=== PATIENT | male | born 1955 | race African-American/Black ===

== ENCOUNTER 2020-05-04 20:55 | Emergency (ER) | payer OTHER ==
[~2020-05-04] VITALS: Ht 182.9 cm; Wt 115.0 kg
[2020-05-04 21:05] VITALS: BP 132/75
[2020-05-04] MEDS ORDERED: ACETAMINOPHEN 325MG TABLET PO ONE (22:30)
[2020-05-04 23:30] LABS: CLARITY URINE CLEAR (CLEAR); COLOR URINE YELLOW (YELLOW); KETONES URINE TRACE (NEGATIVE); LEUKOCYTE ESTERASE URINE TRACE (NEGATIVE); NITRITE URINE NEGATIVE (NEGATIVE); OCCULT BLOOD URINE NEGATIVE (NEGATIVE); PROTEIN URINE TRACE (NEGATIVE); SPECIFIC GRAVITY URINE 1.025 (1.005-1.030); UROBILINOGEN URINE 0.2 E.U./dL (0.2-1.0)
[2020-05-04 23:45] LABS: *AMPHETAMINES SCREEN URINE NEGATIVE (NEGATIVE)
[2020-05-04 23:46] LABS: *BARBITURATES SCREEN URINE NEGATIVE (NEGATIVE); *COCAINE SCREEN URINE NEGATIVE (NEGATIVE); METHADONE URINE SCREEN NEGATIVE (NEGATIVE); OPIATES URINE SCREEN NEGATIVE (NEGATIVE); PHENCYCLIDINE URINE SCREEN PRESUMTIVE POSITIVE (NEGATIVE)
[2020-05-04 23:47] LABS: *BENZODIAZEPINES SCREEN URINE NEGATIVE (NEGATIVE); CANNABINOID URINE SCREEN NEGATIVE (NEGATIVE)
== END 2020-05-05 00:19 | disposition left against medical advice (07) ==
LOC: ER 20:55
DX: F16.129 Hallucinogen abuse with intoxication, unspecified (principal); M54.5 Low back pain; I11.0 Hypertensive heart disease with heart failure; I50.9 Heart failure, unspecified; Z53.29 Procedure and treatment not carried out because of patient's decision for other reasons; W01.0XXD Fall on same level from slipping, tripping and stumbling without subsequent striking against object, subsequent encounter
CPT/HCPCS: 72131; 80305; 81003; 99284

== ENCOUNTER 2020-06-17 19:30 | Emergency (ER) | payer OTHER ==
[~2020-06-17] VITALS: Ht 182.9 cm; Wt 103.0 kg
[2020-06-17 19:33] VITALS: BP 186/83
== END 2020-06-17 21:50 | disposition home or self-care (01) ==
LOC: ER 19:30
DX: M54.5 Low back pain (principal); I11.0 Hypertensive heart disease with heart failure; I50.9 Heart failure, unspecified
CPT/HCPCS: 99281

== ENCOUNTER 2020-06-18 17:45 | Emergency (ER) | payer OTHER ==
[~2020-06-18] VITALS: Ht 175.3 cm; Wt 71.0 kg
[2020-06-18 18:04] VITALS: BP 150/100
[2020-06-18] MEDS ORDERED: ACETAMINOPHEN 325MG TABLET PO ONE (21:45)
== END 2020-06-18 23:21 | disposition home or self-care (01) ==
LOC: ER 17:45
DX: R07.89 Other chest pain (principal); M54.5 Low back pain
CPT/HCPCS: 93005; 99283

== ENCOUNTER 2020-06-19 18:50 | Emergency (ER) | payer OTHER ==
[~2020-06-19] VITALS: Ht 175.3 cm; Wt 90.0 kg
[2020-06-19 18:56] VITALS: BP 177/78
== END 2020-06-20 02:51 | disposition home or self-care (01) ==
LOC: ER 19:01
DX: R60.0 Localized edema (principal)
CPT/HCPCS: 93005; 99283

== ENCOUNTER 2020-06-20 18:58 | Emergency (ER) | payer OTHER ==
[~2020-06-20] VITALS: Ht 182.9 cm; Wt 80.0 kg
[2020-06-20 19:23] VITALS: BP 164/81
== END 2020-06-21 02:45 | disposition home or self-care (01) ==
LOC: ER 18:58
DX: R07.89 Other chest pain (principal); M54.5 Low back pain; R09.02 Hypoxemia; T73.0XXA Starvation, initial encounter; X58.XXXA Exposure to other specified factors, initial encounter; J84.9 Interstitial pulmonary disease, unspecified; Z86.711 Personal history of pulmonary embolism; Z79.01 Long term (current) use of anticoagulants; Z95.828 Presence of other vascular implants and grafts; Z59.1 Inadequate housing
CPT/HCPCS: 71045; 93005; 99283; Z7610

== ENCOUNTER 2020-08-19 16:45 | Inpatient (IN) | payer MEDICARE, MEDICAID ==
[~2020-08-19] VITALS: Ht 182.9 cm; Wt 86.3 kg
[2020-08-19 18:32] LABS: BASOPHILS % 0.8 % (0.0-2.0); EOSINOPHILS % 6.4 % (0.0-5.0); HEMATOCRIT. 36.4 % (42.0-52.0); HEMOGLOBIN. 11.7 g/dL (14.0-18.0); LYMPHOCYTES % 20.8 % (20.0-50.0); MEAN CORPUSCULAR HEMOGLOBIN 31.8 pg (28.0-32.0); MEAN CORPUSCULAR VOLUME 98.6 fL (80.0-94.0); PLATELET 193 x1000/uL (130-400); RED BLOOD CELL COUNT 3.69 mill/uL (4.7-6.1); RED CELL DISTRIBUTION WIDTH 16.5 % (11.6-14.6)
[2020-08-19 18:34] LABS: CHLORIDE 107 mEq/L (98-107)
[2020-08-19 18:37] LABS: ETHANOL BLOOD < 10 mg/dL
[2020-08-19] MEDS ORDERED: PERMETHRIN 5% CREAM 60GM TOP ONE (21:00)
[2020-08-19 21:01] LABS: INR 1.1; PROTHROMBIN TIME 11.3 sec (9.6-11.0)
[2020-08-19] MEDS ORDERED: IOHEXOL-300 100 ML BOTTLE ONE (23:00)
[2020-08-20] VITALS (8 sets, daily range): BP systolic 145–196; BP diastolic 80–106
[2020-08-20] MEDS ORDERED: NIFE60TA78 MT (03:26)
[2020-08-20] MEDS ORDERED: RIVA20TA MT (03:26)
[2020-08-20] MEDS ORDERED: ASPI-1497 MT (03:26)
[2020-08-20] MEDS ORDERED: CLONIDINE 0.1MG TABLET PO PRN (05:30)
[2020-08-20] MEDS: ASPIRIN 81MG EC TABLET PO SCH (08:56)
[2020-08-20] MEDS: NIFEDIPINE XL 60MG TAB PO SCH ×2 (09:00→21:05)
[2020-08-20] MEDS ORDERED: RIVAROXABAN 20 MG TABLET PO SCH (17:00)
[2020-08-21] VITALS: BP 151/80
[2020-08-21 03:39] LABS: CLARITY URINE CLEAR (CLEAR); COLOR URINE YELLOW (YELLOW); KETONES URINE NEGATIVE (NEGATIVE); LEUKOCYTE ESTERASE URINE TRACE (NEGATIVE); NITRITE URINE NEGATIVE (NEGATIVE); OCCULT BLOOD URINE NEGATIVE (NEGATIVE); PH URINE 6.5 (4.5-8.0); PROTEIN URINE TRACE (NEGATIVE); SPECIFIC GRAVITY URINE 1.026 (1.005-1.030)
[2020-08-21 03:57] LABS: *AMPHETAMINES SCREEN URINE NEGATIVE (NEGATIVE); *BARBITURATES SCREEN URINE NEGATIVE (NEGATIVE); *BENZODIAZEPINES SCREEN URINE NEGATIVE (NEGATIVE); *COCAINE SCREEN URINE NEGATIVE (NEGATIVE)
[2020-08-21 03:58] LABS: CANNABINOID URINE SCREEN NEGATIVE (NEGATIVE); METHADONE URINE SCREEN NEGATIVE (NEGATIVE); OPIATES URINE SCREEN NEGATIVE (NEGATIVE); PHENCYCLIDINE URINE SCREEN PRESUMTIVE POSITIVE (NEGATIVE)
[2020-08-21 04:00] VITALS: BP 134/74
[2020-08-21 08:00] VITALS: BP 150/76
[2020-08-21] MEDS: ASPIRIN 81MG EC TABLET PO SCH (09:16)
[2020-08-21] MEDS: NIFEDIPINE XL 60MG TAB PO SCH (09:16)
[2020-08-21 10:16] LABS: BASOPHILS % 0.3 % (0.0-2.0); EOSINOPHILS % 7.8 % (0.0-5.0); HEMATOCRIT. 39.7 % (42.0-52.0); HEMOGLOBIN. 12.8 g/dL (14.0-18.0); LYMPHOCYTES % 18.4 % (20.0-50.0); MEAN CORPUSCULAR HEMOGLOBIN 32.2 pg (28.0-32.0); MEAN CORPUSCULAR VOLUME 99.6 fL (80.0-94.0); MONOCYTES % 8.3 % (2.0-8.0); NEUTROPHILS % 65.2 % (40.0-76.0); PLATELET 203 x1000/uL (130-400); RED BLOOD CELL COUNT 3.98 mill/uL (4.7-6.1)
[2020-08-21 10:19] LABS: CHLORIDE 107 mEq/L (98-107)
[2020-08-21 10:26] LABS: LDL CHOLESTEROL 69 mg/dL (5-100)
[2020-08-21 10:27] LABS: HDL CHOLESTEROL 65 mg/dL (40-59)
[2020-08-21 12:00] VITALS: BP 155/76
[2020-08-30] MEDS ORDERED: ACET-2708 MT ×2 (01:15)
[2020-09-19] MEDS ORDERED: CLON0.1T MT (01:59)
[2020-09-21] MEDS ORDERED: FURO-151 MT (17:50)
[2020-09-21] MEDS ORDERED: RIVA20TA PO (17:50)
[2020-09-21] MEDS ORDERED: POTA20TA82 MT (17:50)
[2020-09-21] MEDS ORDERED: LOSA100T32 MT (17:50)
== END 2020-08-21 12:30 | disposition left against medical advice (07) | DRG 203 ==
LOC: ER 16:45 → 5WST 23:24 → ENRESERV 08-20 00:47
PROVIDERS: ADMIT Internal Medicine; ATTEND Internal Medicine
DX: M94.0 Chondrocostal junction syndrome [Tietze] (principal); I11.0 Hypertensive heart disease with heart failure; I50.9 Heart failure, unspecified; I27.20 Pulmonary hypertension, unspecified; F17.210 Nicotine dependence, cigarettes, uncomplicated; J44.9 Chronic obstructive pulmonary disease, unspecified; R47.1 Dysarthria and anarthria; F14.10 Cocaine abuse, uncomplicated; Y90.9 Presence of alcohol in blood, level not specified; J98.11 Atelectasis; F10.20 Alcohol dependence, uncomplicated; Z53.29 Procedure and treatment not carried out because of patient's decision for other reasons; Z86.711 Personal history of pulmonary embolism; Z79.01 Long term (current) use of anticoagulants; Z79.899 Other long term (current) drug therapy; Z91.14 Patient's other noncompliance with medication regimen; Z91.19 Patient's noncompliance with other medical treatment and regimen; Z95.828 Presence of other vascular implants and grafts; D64.9 Anemia, unspecified; F16.90 Hallucinogen use, unspecified, uncomplicated
CPT/HCPCS: 36415; 70496; 70498; 71045; 80048; 80053; 80061; 80305; 80320; 81003; 82962; 83721; 84484; 85025; 93005; 99285; Q9967; G0480

== ENCOUNTER 2020-08-21 19:13 | Emergency (ER) | payer MEDICARE, MEDICAID ==
[~2020-08-21] VITALS: Ht 177.8 cm; Wt 84.0 kg
[~2020-08-21 19:13] MED LIST: ASPI-1497 MT; NIFE60TA78 MT; RIVA20TA MT
[2020-08-21] MEDS ORDERED: MAGNESIUM/ALUMINUM HYDROXIDE/SIMETHICONE 30ML UDC PO ONE (20:00)
[2020-08-21] MEDS ORDERED: ACETAMINOPHEN 325MG TABLET PO ONE (20:00)
[2020-08-21] MEDS ORDERED: FAMOTIDINE 20MG TABLET PO ONE (20:00)
[2020-08-22 00:30] VITALS: BP 133/64
[2020-08-30] MEDS ORDERED: ACET-2708 MT ×2 (01:15)
[2020-09-19] MEDS ORDERED: CLON0.1T MT (01:59)
[2020-09-21] MEDS ORDERED: RIVA20TA PO (17:50)
[2020-09-21] MEDS ORDERED: POTA20TA82 MT (17:50)
[2020-09-21] MEDS ORDERED: FURO-151 MT (17:50)
[2020-09-21] MEDS ORDERED: LOSA100T32 MT (17:50)
== END 2020-08-22 00:40 | disposition home or self-care (01) ==
LOC: ER 19:13
DX: M25.552 Pain in left hip (principal); R07.89 Other chest pain; I10 Essential (primary) hypertension; F17.290 Nicotine dependence, other tobacco product, uncomplicated; F10.229 Alcohol dependence with intoxication, unspecified; Y90.0 Blood alcohol level of less than 20 mg/100 ml
CPT/HCPCS: 99285; J7030; 36415; 71045; 73502; 80053; 83880; 84484; 85025; 93005

== ENCOUNTER 2020-08-25 18:06 | Inpatient (IN) | payer MEDICARE, MEDICAID ==
[~2020-08-25] VITALS: Ht 182.9 cm; Wt 75.3 kg
[2020-08-25] MEDS ORDERED: ASPIRIN 81MG TABLET PO ONE (18:45)
[2020-08-25] MEDS ORDERED: NITROGLYCERIN 0.4MG TABLET SL SL PRN (18:45)
[2020-08-25] MEDS ORDERED: KETOROLAC 30MG/ML VIAL IV STA (18:56)
[2020-08-25 19:39] LABS: BASOPHILS % 1.4 % (0.0-2.0); EOSINOPHILS % 6.5 % (0.0-5.0); HEMATOCRIT. 34.7 % (42.0-52.0); HEMOGLOBIN. 11.4 g/dL (14.0-18.0); LYMPHOCYTES % 22.6 % (20.0-50.0); MEAN CORPUSCULAR HEMOGLOBIN 32.4 pg (28.0-32.0); MEAN CORPUSCULAR VOLUME 99.1 fL (80.0-94.0); MEAN PLATELET VOLUME 8.3 fl (7.4-10.4); MONOCYTES % 9.3 % (2.0-8.0); NEUTROPHILS % 60.2 % (40.0-76.0); PLATELET 180 x1000/uL (130-400); RED CELL DISTRIBUTION WIDTH 16.7 % (11.6-14.6)
[2020-08-25 19:43] LABS: CHLORIDE 110 mEq/L (98-107)
[2020-08-25 19:48] LABS: PARTIAL THROMBOPLASTIN TIME 26.5 sec (23.4-31.0); PROTHROMBIN TIME 10.9 sec (9.6-11.0)
[2020-08-25] MEDS ORDERED: ASPIRIN 81MG TABLET PO NR (22:45)
[2020-08-26 08:00] VITALS: BP 178/84
[2020-08-26] MEDS ORDERED: ENOXAPARIN 40MG/0.4ML SYR SUBCUT SCH (09:00)
[2020-08-26] MEDS ORDERED: IPRATROPIUM/ALBUTEROL 0.5-3(2.5)MG/3ML NEB HHN PRN (09:15)
[2020-08-26] MEDS ORDERED: ACETAMINOPHEN 325MG TABLET PO PRN (09:15)
[2020-08-26] MEDS ORDERED: DIPHENHYDRAMINE 50MG/ML VIAL IV PRN (09:15)
[2020-08-26] MEDS ORDERED: CLONIDINE 0.1MG TABLET PO PRN (09:15)
[2020-08-26] MEDS ORDERED: ONDANSETRON HCL 4MG/2ML INJ IV PRN (09:15)
[2020-08-26 10:46] VITALS: BP 178/84
[2020-08-26 11:08] VITALS: BP 178/84
[2020-08-26 12:00] VITALS: BP 126/69
[2020-08-26] MEDS: HYDRALAZINE HCL 50MG TABLET PO SCH ×2 (12:41→20:33)
[2020-08-26] MEDS: AMLODIPINE 10MG TABLET PO SCH (12:41)
[2020-08-26 16:00] VITALS: BP 123/68
[2020-08-26] MEDS ORDERED: RIVAROXABAN 20 MG TABLET PO SCH (17:00)
[2020-08-26 20:00] VITALS: BP 147/75
[2020-08-27] VITALS: BP 127/67
[2020-08-27 04:00] VITALS: BP 149/75
[2020-08-27 08:12] LABS: BASOPHILS % 0.4 % (0.0-2.0); EOSINOPHILS % 7.6 % (0.0-5.0); HEMATOCRIT. 37.9 % (42.0-52.0); HEMOGLOBIN. 12.6 g/dL (14.0-18.0); LYMPHOCYTES % 25.1 % (20.0-50.0); MEAN CORPUSCULAR HEMOGLOBIN 32.8 pg (28.0-32.0); MEAN CORPUSCULAR VOLUME 98.8 fL (80.0-94.0); MEAN PLATELET VOLUME 9.3 fl (7.4-10.4); MONOCYTES % 9.8 % (2.0-8.0); NEUTROPHILS % 57.1 % (40.0-76.0); PLATELET 168 x1000/uL (130-400); RED BLOOD CELL COUNT 3.84 mill/uL (4.7-6.1); RED CELL DISTRIBUTION WIDTH 16.9 % (11.6-14.6)
[2020-08-27 08:29] LABS: CHLORIDE 110 mEq/L (98-107)
[2020-08-27 08:35] LABS: *AMPHETAMINES SCREEN URINE NEGATIVE (NEGATIVE)
[2020-08-27 08:36] LABS: *BARBITURATES SCREEN URINE NEGATIVE (NEGATIVE); *BENZODIAZEPINES SCREEN URINE NEGATIVE (NEGATIVE); *COCAINE SCREEN URINE NEGATIVE (NEGATIVE); METHADONE URINE SCREEN NEGATIVE (NEGATIVE); OPIATES URINE SCREEN NEGATIVE (NEGATIVE)
[2020-08-27 08:37] LABS: CANNABINOID URINE SCREEN NEGATIVE (NEGATIVE); PHENCYCLIDINE URINE SCREEN PRESUMTIVE POSITIVE (NEGATIVE)
[2020-08-27 08:41] LABS: LDL CHOLESTEROL 67 mg/dL (5-100)
[2020-08-27 08:43] LABS: HDL CHOLESTEROL 60 mg/dL (40-59)
[2020-08-27] MEDS: HYDRALAZINE HCL 50MG TABLET PO SCH (09:00)
[2020-08-27] MEDS: AMLODIPINE 10MG TABLET PO SCH (09:00)
[2020-09-19] MEDS ORDERED: CLON0.1T MT (01:59)
== END 2020-08-27 12:53 | disposition left against medical advice (07) | DRG 203 ==
LOC: ER 18:06 → 6WST 21:09 → ENRESERV 08-26 08:14
PROVIDERS: ADMIT Internal Medicine; ATTEND Internal Medicine
DX: M94.0 Chondrocostal junction syndrome [Tietze] (principal); I25.10 Atherosclerotic heart disease of native coronary artery without angina pectoris; I11.0 Hypertensive heart disease with heart failure; I50.9 Heart failure, unspecified; M25.552 Pain in left hip; E78.5 Hyperlipidemia, unspecified; I27.20 Pulmonary hypertension, unspecified; F10.10 Alcohol abuse, uncomplicated; Y90.9 Presence of alcohol in blood, level not specified; F14.10 Cocaine abuse, uncomplicated; F16.10 Hallucinogen abuse, uncomplicated; W10.9XXA Fall (on) (from) unspecified stairs and steps, initial encounter; F17.210 Nicotine dependence, cigarettes, uncomplicated; I36.1 Nonrheumatic tricuspid (valve) insufficiency; Z86.711 Personal history of pulmonary embolism; Z79.01 Long term (current) use of anticoagulants; Z79.899 Other long term (current) drug therapy; Z79.82 Long term (current) use of aspirin; Z95.828 Presence of other vascular implants and grafts; Z91.19 Patient's noncompliance with other medical treatment and regimen; Z91.14 Patient's other noncompliance with medication regimen; Y93.89 Activity, other specified; Y92.89 Other specified places as the place of occurrence of the external cause; Y99.8 Other external cause status; E87.8 Other disorders of electrolyte and fluid balance, not elsewhere classified; Z71.51 Drug abuse counseling and surveillance of drug abuser
CPT/HCPCS: 36415; 71045; 73502; 80053; 80061; 80305; 83880; 84443; 84484; 85025; 93005; 93970; 99285; J1650

== ENCOUNTER 2020-08-27 17:13 | Emergency (ER) | payer MEDICARE, MEDICAID ==
[~2020-08-27] VITALS: Ht 170.2 cm; Wt 77.0 kg
[2020-08-27 22:49] VITALS: BP 135/79
== END 2020-08-28 00:44 | disposition home or self-care (01) ==
LOC: ER 17:13
DX: M25.552 Pain in left hip (principal); G89.29 Other chronic pain; Z91.81 History of falling; I11.9 Hypertensive heart disease without heart failure; F10.20 Alcohol dependence, uncomplicated; Y90.9 Presence of alcohol in blood, level not specified
CPT/HCPCS: 73502; 99283

== ENCOUNTER 2020-08-29 20:10 | Emergency (ER) | payer MEDICARE, MEDICAID ==
[~2020-08-29] VITALS: Ht 175.3 cm; Wt 74.0 kg
[2020-08-29 21:51] LABS: CLARITY URINE CLEAR (CLEAR); COLOR URINE YELLOW (YELLOW); KETONES URINE TRACE (NEGATIVE); LEUKOCYTE ESTERASE URINE NEGATIVE (NEGATIVE); NITRITE URINE NEGATIVE (NEGATIVE); OCCULT BLOOD URINE NEGATIVE (NEGATIVE); PH URINE 6.5 (4.5-8.0); PROTEIN URINE 1+ (NEGATIVE); SPECIFIC GRAVITY URINE 1.022 (1.005-1.030)
[2020-08-29 22:14] LABS: BASOPHILS % 1.1 % (0.0-2.0); EOSINOPHILS % 5.6 % (0.0-5.0); HEMATOCRIT. 34.8 % (42.0-52.0); HEMOGLOBIN. 11.6 g/dL (14.0-18.0); LYMPHOCYTES % 17.6 % (20.0-50.0); MEAN CORPUSCULAR VOLUME 99.2 fL (80.0-94.0); MEAN PLATELET VOLUME 8.2 fl (7.4-10.4); MONOCYTES % 11.2 % (2.0-8.0); NEUTROPHILS % 64.5 % (40.0-76.0); PLATELET 180 x1000/uL (130-400); RED BLOOD CELL COUNT 3.51 mill/uL (4.7-6.1); RED CELL DISTRIBUTION WIDTH 16.8 % (11.6-14.6)
[2020-08-29 22:21] LABS: CHLORIDE 110 mEq/L (98-107)
[2020-08-29 22:27] LABS: PARTIAL THROMBOPLASTIN TIME 28.2 sec (23.4-31.0); PROTHROMBIN TIME 10.4 sec (9.6-11.0)
[2020-08-29] MEDS ORDERED: SODIUM CHLORIDE 0.9% 1,000 ML IV ONE (23:00)
[2020-08-30] MEDS ORDERED: ACET-2708 MT (01:15)
[2020-08-30 01:35] VITALS: BP 161/77
== END 2020-08-30 01:36 | disposition home or self-care (01) ==
LOC: ER 20:10
DX: R07.89 Other chest pain (principal); M25.552 Pain in left hip; Z91.81 History of falling; R79.89 Other specified abnormal findings of blood chemistry; I11.9 Hypertensive heart disease without heart failure; I45.10 Unspecified right bundle-branch block; D53.9 Nutritional anemia, unspecified
CPT/HCPCS: 36415; 71045; 73502; 80053; 80320; 81003; 84484; 85025; 85610; 85730; 93005; 96360; 96361; 99285; J7030; G0480

== ENCOUNTER 2020-08-31 14:02 | Emergency (ER) | payer MEDICARE, MEDICAID ==
[~2020-08-31] VITALS: Ht 165.1 cm; Wt 73.0 kg
[~2020-08-31 14:02] MED LIST changes: +ACET-2708 MT
[2020-08-31 14:03] VITALS: BP 150/84
[2020-08-31] MEDS ORDERED: ACETAMINOPHEN 325MG TABLET PO ONE (14:30)
[2020-09-19] MEDS ORDERED: CLON0.1T MT (01:59)
[2020-09-21] MEDS ORDERED: LOSA100T32 MT (17:50)
[2020-09-21] MEDS ORDERED: FURO-151 MT (17:50)
[2020-09-21] MEDS ORDERED: POTA20TA82 MT (17:50)
[2020-09-21] MEDS ORDERED: RIVA20TA PO (17:50)
== END 2020-08-31 14:53 | disposition home or self-care (01) ==
LOC: ER 14:02
DX: M25.552 Pain in left hip (principal); I10 Essential (primary) hypertension; Z79.82 Long term (current) use of aspirin
CPT/HCPCS: 99283

== ENCOUNTER 2020-09-05 17:53 | Emergency (ER) | payer MEDICARE, MEDICAID ==
[~2020-09-05] VITALS: Ht 182.9 cm; Wt 86.0 kg
[2020-09-05 17:54] VITALS: BP 187/87
[2020-09-05] MEDS ORDERED: ACETAMINOPHEN 325MG TABLET PO ONE (18:15)
== END 2020-09-05 20:46 | disposition home or self-care (01) ==
LOC: ER 17:53
DX: M16.12 Unilateral primary osteoarthritis, left hip (principal); F10.229 Alcohol dependence with intoxication, unspecified; Y90.0 Blood alcohol level of less than 20 mg/100 ml; I10 Essential (primary) hypertension; Z79.82 Long term (current) use of aspirin; Z79.899 Other long term (current) drug therapy
CPT/HCPCS: 73502; 99283

== ENCOUNTER 2020-09-14 21:35 | Emergency (ER) | payer MEDICARE, MEDICAID ==
[~2020-09-14] VITALS: Ht 182.9 cm; Wt 120.0 kg
[2020-09-15] MEDS ORDERED: KETOROLAC 60MG/2ML VIAL IM ONE
[2020-09-15] MEDS ORDERED: ASPIRIN 325MG TABLET PO ONE
[2020-09-15 01:03] VITALS: BP 168/74
[2020-09-19] MEDS ORDERED: CLON0.1T MT (01:59)
== END 2020-09-15 01:06 | disposition home or self-care (01) ==
LOC: ER 21:35
DX: M16.12 Unilateral primary osteoarthritis, left hip (principal); G89.29 Other chronic pain; R07.89 Other chest pain; I10 Essential (primary) hypertension
CPT/HCPCS: 93005; 96372; 99283; J1885

== ENCOUNTER 2020-09-22 20:05 | Emergency (ER) | payer MEDICARE, MEDICAID ==
[~2020-09-22] VITALS: Ht 182.9 cm; Wt 77.0 kg
[~2020-09-22 20:05] MED LIST changes: -ACET-2708 MT; -ASPI-1497 MT; +CLON0.1T MT; +FURO-151 MT; +LOSA100T32 MT; -NIFE60TA78 MT; +POTA20TA82 MT; -RIVA20TA MT; +RIVA20TA PO
[2020-09-22 20:28] VITALS: BP 106/87
[2020-09-22] MEDS ORDERED: ACETAMINOPHEN 325MG TABLET PO ONE (20:45)
== END 2020-09-22 21:18 | disposition home or self-care (01) ==
LOC: ER 20:05
DX: M25.552 Pain in left hip (principal); G89.29 Other chronic pain; I10 Essential (primary) hypertension
CPT/HCPCS: 99283

== ENCOUNTER 2020-10-12 13:00 | Inpatient (IN) | payer MEDICARE, MEDICAID ==
[~2020-10-12] VITALS: Ht 182.9 cm; Wt 78.0 kg
[2020-10-12] MEDS ORDERED: SODIUM CHLORIDE 0.9% 1,000 ML IV ONE (13:30)
[2020-10-12 15:05] LABS: CHLORIDE 113 mEq/L (98-107)
[2020-10-12 15:11] LABS: BASOPHILS % 0.2 % (0.0-2.0); EOSINOPHILS % 1.4 % (0.0-5.0); HEMOGLOBIN. 11.9 g/dL (14.0-18.0); LYMPHOCYTES % 16.8 % (20.0-50.0); MEAN CORPUSCULAR HEMOGLOBIN 33.4 pg (28.0-32.0); MEAN PLATELET VOLUME 8.6 fl (7.4-10.4); MONOCYTES % 11.2 % (2.0-8.0); NEUTROPHILS % 70.4 % (40.0-76.0); PLATELET 186 x1000/uL (130-400); RED BLOOD CELL COUNT 3.56 mill/uL (4.7-6.1); RED CELL DISTRIBUTION WIDTH 15.9 % (11.6-14.6)
[2020-10-12] MEDS ORDERED: IPRATROPIUM/ALBUTEROL 0.5-3(2.5)MG/3ML NEB HHN PRN (17:45)
[2020-10-12] MEDS ORDERED: ACETAMINOPHEN 325MG TABLET PO PRN (17:45)
[2020-10-12] MEDS ORDERED: ONDANSETRON HCL 4MG/2ML INJ IV PRN (17:45)
[2020-10-12] MEDS ORDERED: CLONIDINE 0.1MG TABLET PO PRN (17:45)
[2020-10-12] MEDS ORDERED: DIPHENHYDRAMINE 50MG/ML VIAL IV PRN (17:45)
[2020-10-12 18:19] LABS: CLARITY URINE CLEAR (CLEAR); COLOR URINE YELLOW (YELLOW); KETONES URINE TRACE (NEGATIVE); LEUKOCYTE ESTERASE URINE NEGATIVE (NEGATIVE); NITRITE URINE NEGATIVE (NEGATIVE); OCCULT BLOOD URINE NEGATIVE (NEGATIVE); PH URINE 5.5 (4.5-8.0); PROTEIN URINE 1+ (NEGATIVE); SPECIFIC GRAVITY URINE 1.024 (1.005-1.030)
[2020-10-13] VITALS (7 sets, daily range): BP systolic 97–143; BP diastolic 46–76
[2020-10-13 06:42] LABS: BASOPHILS % 0.7 % (0.0-2.0); EOSINOPHILS % 5.4 % (0.0-5.0); HEMATOCRIT. 38.2 % (42.0-52.0); HEMOGLOBIN. 11.9 g/dL (14.0-18.0); LYMPHOCYTES % 27.7 % (20.0-50.0); MEAN CORPUSCULAR HEMOGLOBIN 31.2 pg (28.0-32.0); MEAN CORPUSCULAR VOLUME 99.8 fL (80.0-94.0); MEAN PLATELET VOLUME 8.5 fl (7.4-10.4); MONOCYTES % 8.7 % (2.0-8.0); NEUTROPHILS % 57.5 % (40.0-76.0); PLATELET 211 x1000/uL (130-400); RED BLOOD CELL COUNT 3.83 mill/uL (4.7-6.1); RED CELL DISTRIBUTION WIDTH 16.3 % (11.6-14.6)
[2020-10-13 06:46] LABS: CHLORIDE 113 mEq/L (98-107)
[2020-10-13 06:57] LABS: LDL CHOLESTEROL 63 mg/dL (5-100)
[2020-10-13 07:00] LABS: HDL CHOLESTEROL 70 mg/dL (40-59)
[2020-10-13] MEDS: SODIUM CHLORIDE 0.9% 1,000 ML IV SCH ×2 (08:29→20:25)
[2020-10-13] MEDS: RIVAROXABAN 20 MG TABLET PO SCH (18:05)
[2020-10-13] MEDS: FUROSEMIDE 40MG TABLET PO SCH (18:05)
[2020-10-13] MEDS: CLONIDINE 0.1MG TABLET PO SCH (21:22)
[2020-10-14] VITALS: BP 127/61
[2020-10-14 04:00] VITALS: BP 144/67
[2020-10-14 08:00] VITALS: BP 139/79
[2020-10-14] MEDS: FUROSEMIDE 40MG TABLET PO SCH (08:58)
[2020-10-14] MEDS: POTASSIUM CHLORIDE 20MEQ TABLET SR PO SCH (08:58)
[2020-10-14] MEDS: SODIUM CHLORIDE 0.9% 1,000 ML IV SCH ×2 (08:59→23:05)
[2020-10-14] MEDS ORDERED: LOSARTAN POTASSIUM 100 MG TABLET PO SCH (09:00)
[2020-10-14] MEDS ORDERED: AMLODIPINE 2.5MG TABLET PO SCH (10:30)
[2020-10-14 12:00] VITALS: BP 101/54
[2020-10-14 12:56] LABS: BASOPHILS % 0.7 % (0.0-2.0); EOSINOPHILS % 5.7 % (0.0-5.0); HEMATOCRIT. 34.6 % (42.0-52.0); HEMOGLOBIN. 11.3 g/dL (14.0-18.0); LYMPHOCYTES % 26.2 % (20.0-50.0); MEAN CORPUSCULAR HEMOGLOBIN 32.4 pg (28.0-32.0); MEAN CORPUSCULAR VOLUME 98.9 fL (80.0-94.0); MONOCYTES % 10.6 % (2.0-8.0); NEUTROPHILS % 56.8 % (40.0-76.0); PLATELET 177 x1000/uL (130-400); RED CELL DISTRIBUTION WIDTH 16.2 % (11.6-14.6)
[2020-10-14 13:03] LABS: CHLORIDE 111 mEq/L (98-107)
[2020-10-14] MEDS ORDERED: IOHEXOL 350 MG/ML 200ML INFUS..BTL IV ONE (15:19)
[2020-10-14 16:00] VITALS: BP 114/74
[2020-10-14] MEDS: RIVAROXABAN 20 MG TABLET PO SCH (17:36)
[2020-10-14 20:00] VITALS: BP 133/66
[2020-10-14] MEDS: CLONIDINE 0.1MG TABLET PO SCH (21:00)
[2020-10-15] VITALS: BP 137/71
[2020-10-15 04:00] VITALS: BP 135/85
[2020-10-15 07:26] LABS: BASOPHILS % 0.8 % (0.0-2.0); EOSINOPHILS % 7.2 % (0.0-5.0); LYMPHOCYTES % 30.7 % (20.0-50.0); MEAN CORPUSCULAR VOLUME 98.8 fL (80.0-94.0); MEAN PLATELET VOLUME 9.2 fl (7.4-10.4); MONOCYTES % 11.6 % (2.0-8.0); NEUTROPHILS % 49.7 % (40.0-76.0); PLATELET 190 x1000/uL (130-400); RED BLOOD CELL COUNT 3.74 mill/uL (4.7-6.1); RED CELL DISTRIBUTION WIDTH 16.3 % (11.6-14.6)
[2020-10-15 08:00] VITALS: BP 105/40
[2020-10-15 08:13] LABS: CHLORIDE 109 mEq/L (98-107)
[2020-10-15] MEDS: LOSARTAN POTASSIUM 50 MG TABLET PO SCH (08:50)
[2020-10-15] MEDS: POTASSIUM CHLORIDE 20MEQ TABLET SR PO SCH (08:50)
[2020-10-15] MEDS: AMLODIPINE 2.5MG TABLET PO SCH (08:51)
[2020-10-15 12:00] VITALS: BP 132/63
[2020-10-15] MEDS: SODIUM CHLORIDE 0.9% 1,000 ML IV SCH (12:25)
[2020-10-15 16:00] VITALS: BP 102/68
[2020-10-15] MEDS: RIVAROXABAN 20 MG TABLET PO SCH (17:23)
[2020-10-15 20:00] VITALS: BP 138/70
[2020-10-15] MEDS: CLONIDINE 0.1MG TABLET PO SCH (21:00)
[2020-10-16] VITALS: BP 139/71
[2020-10-16] MEDS: SODIUM CHLORIDE 0.9% 1,000 ML IV SCH ×2 (00:59→15:05)
[2020-10-16 08:00] VITALS: BP 145/72
[2020-10-16 08:01] LABS: BASOPHILS % 0.5 % (0.0-2.0); EOSINOPHILS % 6.7 % (0.0-5.0); HEMATOCRIT. 38.4 % (42.0-52.0); LYMPHOCYTES % 24.2 % (20.0-50.0); MEAN CORPUSCULAR HEMOGLOBIN 33.6 pg (28.0-32.0); MEAN CORPUSCULAR VOLUME 99.3 fL (80.0-94.0); MONOCYTES % 10.1 % (2.0-8.0); NEUTROPHILS % 58.5 % (40.0-76.0); PLATELET 173 x1000/uL (130-400); RED BLOOD CELL COUNT 3.87 mill/uL (4.7-6.1)
[2020-10-16 08:07] LABS: CHLORIDE 108 mEq/L (98-107)
[2020-10-16] MEDS: LOSARTAN POTASSIUM 50 MG TABLET PO SCH (10:09)
[2020-10-16] MEDS: AMLODIPINE 2.5MG TABLET PO SCH (10:10)
[2020-10-16] MEDS: POTASSIUM CHLORIDE 20MEQ TABLET SR PO SCH (10:10)
[2020-10-16 12:00] VITALS: BP 137/80
[2020-10-16] MEDS: RIVAROXABAN 20 MG TABLET PO SCH (16:42)
[2020-10-16 20:00] VITALS: BP 145/64
[2020-10-16] MEDS: CLONIDINE 0.1MG TABLET PO SCH (20:49)
[2020-10-17 00:16] VITALS: BP 127/59
[2020-10-17 04:00] VITALS: BP 139/65
[2020-10-17] MEDS: SODIUM CHLORIDE 0.9% 1,000 ML IV SCH ×2 (04:25→17:45)
[2020-10-17 06:14] LABS: CHLORIDE 108 mEq/L (98-107)
[2020-10-17 06:23] LABS: BASOPHILS % 0.5 % (0.0-2.0); EOSINOPHILS % 8.1 % (0.0-5.0); HEMATOCRIT. 36.8 % (42.0-52.0); LYMPHOCYTES % 26.4 % (20.0-50.0); MEAN CORPUSCULAR HEMOGLOBIN 32.5 pg (28.0-32.0); MEAN CORPUSCULAR VOLUME 99.8 fL (80.0-94.0); MEAN PLATELET VOLUME 9.6 fl (7.4-10.4); MONOCYTES % 9.5 % (2.0-8.0); NEUTROPHILS % 55.5 % (40.0-76.0); PLATELET 171 x1000/uL (130-400); RED BLOOD CELL COUNT 3.69 mill/uL (4.7-6.1); RED CELL DISTRIBUTION WIDTH 16.3 % (11.6-14.6)
[2020-10-17 08:00] VITALS: BP 133/69
[2020-10-17] MEDS: LOSARTAN POTASSIUM 50 MG TABLET PO SCH (09:31)
[2020-10-17] MEDS: POTASSIUM CHLORIDE 20MEQ TABLET SR PO SCH (09:31)
[2020-10-17] MEDS: AMLODIPINE 2.5MG TABLET PO SCH (09:32)
[2020-10-17] MEDS: RIVAROXABAN 20 MG TABLET PO SCH (17:50)
[2020-10-17 20:00] VITALS: BP 138/73
[2020-10-17] MEDS: CLONIDINE 0.1MG TABLET PO SCH (22:08)
[2020-10-18] VITALS: BP 128/54
[2020-10-18 04:00] VITALS: BP 117/58
[2020-10-18 06:54] LABS: BASOPHILS % 0.6 % (0.0-2.0); EOSINOPHILS % 7.8 % (0.0-5.0); HEMATOCRIT. 38.7 % (42.0-52.0); HEMOGLOBIN. 12.3 g/dL (14.0-18.0); LYMPHOCYTES % 26.6 % (20.0-50.0); MEAN CORPUSCULAR HEMOGLOBIN 31.9 pg (28.0-32.0); MEAN CORPUSCULAR VOLUME 100.1 fL (80.0-94.0); MEAN PLATELET VOLUME 9.6 fl (7.4-10.4); MONOCYTES % 10.2 % (2.0-8.0); NEUTROPHILS % 54.8 % (40.0-76.0); PLATELET 190 x1000/uL (130-400); RED BLOOD CELL COUNT 3.87 mill/uL (4.7-6.1); RED CELL DISTRIBUTION WIDTH 15.8 % (11.6-14.6)
[2020-10-18] MEDS: SODIUM CHLORIDE 0.9% 1,000 ML IV SCH (07:05)
[2020-10-18 07:59] LABS: CHLORIDE 109 mEq/L (98-107)
[2020-10-18] MEDS: AMLODIPINE 2.5MG TABLET PO SCH (09:02)
[2020-10-18] MEDS: LOSARTAN POTASSIUM 50 MG TABLET PO SCH (09:02)
[2020-10-18] MEDS: POTASSIUM CHLORIDE 20MEQ TABLET SR PO SCH (09:02)
[2020-10-18] MEDS ORDERED: LOSA50TA3 PO (12:28)
[2020-10-18] MEDS ORDERED: AMLO2.5T45 PO (12:28)
[2020-10-18] MEDS: RIVAROXABAN 20 MG TABLET PO SCH (17:00)
[2020-10-18 20:00] VITALS: BP 152/67
[2020-10-18] MEDS: CLONIDINE 0.1MG TABLET PO SCH (23:11)
[2020-10-19] VITALS: BP 146/67
[2020-10-19 04:00] VITALS: BP 135/66
[2020-10-19] MEDS: LOSARTAN POTASSIUM 50 MG TABLET PO SCH (09:00)
[2020-10-19] MEDS: POTASSIUM CHLORIDE 20MEQ TABLET SR PO SCH (09:00)
[2020-10-19] MEDS: AMLODIPINE 2.5MG TABLET PO SCH (09:00)
[2020-10-19] MEDS: SODIUM CHLORIDE 0.9% 1,000 ML IV SCH (09:38)
== END 2020-10-19 10:10 | disposition home health service (06) | DRG 48 ==
LOC: ER 13:00 → 6EST 19:14 → EDBEDREQTM 19:28 → EDBEDREQ 19:28 → EDBEDREQSVC 19:28 → ENRESERV 20:20
PROVIDERS: ADMIT Internal Medicine; ATTEND Internal Medicine
DX: G90.8 Other disorders of autonomic nervous system (principal); N17.0 Acute kidney failure with tubular necrosis; I13.0 Hypertensive heart and chronic kidney disease with heart failure and stage 1 through stage 4 chronic kidney disease, or unspecified chronic kidney disease; I27.20 Pulmonary hypertension, unspecified; I95.9 Hypotension, unspecified; E44.1 Mild protein-calorie malnutrition; I82.513 Chronic embolism and thrombosis of femoral vein, bilateral; I50.32 Chronic diastolic (congestive) heart failure; J44.9 Chronic obstructive pulmonary disease, unspecified; Z79.01 Long term (current) use of anticoagulants; L97.929 Non-pressure chronic ulcer of unspecified part of left lower leg with unspecified severity; I70.201 Unspecified atherosclerosis of native arteries of extremities, right leg; S90.821A Blister (nonthermal), right foot, initial encounter; I70.249 Atherosclerosis of native arteries of left leg with ulceration of unspecified site; S90.822A Blister (nonthermal), left foot, initial encounter; G89.29 Other chronic pain; N18.9 Chronic kidney disease, unspecified; I82.533 Chronic embolism and thrombosis of popliteal vein, bilateral; M94.0 Chondrocostal junction syndrome [Tietze]; F17.200 Nicotine dependence, unspecified, uncomplicated; E78.5 Hyperlipidemia, unspecified; Z86.73 Personal history of transient ischemic attack (TIA), and cerebral infarction without residual deficits; F19.90 Other psychoactive substance use, unspecified, uncomplicated; L85.3 Xerosis cutis; Z20.822 Contact with and (suspected) exposure to COVID-19; K40.90 Unilateral inguinal hernia, without obstruction or gangrene, not specified as recurrent; I12.9 Hypertensive chronic kidney disease with stage 1 through stage 4 chronic kidney disease, or unspecified chronic kidney disease; X58.XXXA Exposure to other specified factors, initial encounter; Y93.89 Activity, other specified; Y92.89 Other specified places as the place of occurrence of the external cause; Y99.8 Other external cause status; Z79.899 Other long term (current) drug therapy; Z86.711 Personal history of pulmonary embolism; Z71.51 Drug abuse counseling and surveillance of drug abuser
CPT/HCPCS: 36415; 75635; 80048; 80053; 80061; 81003; 84484; 85025; 87426; 93005; 93880; 93923; 93970; 99285; C1893; J7030; Q9967

== ENCOUNTER 2020-12-12 18:08 | Emergency (ER) | payer MEDICARE, MEDICAID ==
[~2020-12-12] VITALS: Ht 182.9 cm; Wt 81.0 kg
[~2020-12-12 18:08] MED LIST changes: +AMLO2.5T45 PO; -LOSA100T32 MT; +LOSA50TA3 PO
[2020-12-13 01:50] VITALS: BP 118/58
[2020-12-13] MEDS ORDERED: ACETAMINOPHEN 325MG TABLET PO ONE (04:30)
== END 2020-12-13 05:30 | disposition home or self-care (01) ==
LOC: ER 18:08
DX: M54.5 Low back pain (principal); R03.0 Elevated blood-pressure reading, without diagnosis of hypertension; F16.10 Hallucinogen abuse, uncomplicated
CPT/HCPCS: 99281

== ENCOUNTER 2020-12-18 12:12 | Emergency (ER) | payer MEDICARE, MEDICAID ==
[~2020-12-18] VITALS: Ht 182.9 cm; Wt 99.0 kg
[2020-12-18 12:33] VITALS: BP 138/82
[2020-12-18] MEDS ORDERED: IBUPROFEN 600MG TABLET PO ONE (12:45)
== END 2020-12-18 14:31 | disposition home or self-care (01) ==
LOC: ER 12:25
DX: S20.211A Contusion of right front wall of thorax, initial encounter (principal); I10 Essential (primary) hypertension; I44.4 Left anterior fascicular block; W22.8XXA Striking against or struck by other objects, initial encounter; Y93.89 Activity, other specified; Y92.018 Other place in single-family (private) house as the place of occurrence of the external cause
CPT/HCPCS: 93005; 99283

== ENCOUNTER 2021-01-25 20:35 | Emergency (ER) | payer MEDICARE, OTHER ==
[~2021-01-25] VITALS: Ht 182.9 cm; Wt 78.0 kg
[2021-01-25 20:41] VITALS: BP 140/74
[2021-01-25] MEDS ORDERED: VISCOUS LIDOCAINE 2% 15 ML UDC MM STA (21:10)
[2021-01-25] MEDS ORDERED: MAGNESIUM/ALUMINUM HYDROXIDE/SIMETHICONE 30ML UDC PO ONE (21:15)
[2021-01-25] MEDS ORDERED: ASPIRIN 325MG EC TABLET PO ONE (21:15)
== END 2021-01-25 23:00 | disposition home or self-care (01) ==
LOC: ER 20:41
DX: R07.89 Other chest pain (principal); F16.10 Hallucinogen abuse, uncomplicated; I10 Essential (primary) hypertension
CPT/HCPCS: 93005; 99283

== ENCOUNTER 2021-01-27 18:00 | Emergency (ER) | payer MEDICARE, OTHER ==
[~2021-01-27] VITALS: Ht 177.8 cm; Wt 82.0 kg
[2021-01-27 18:04] VITALS: BP 123/65
[2021-01-28] MEDS ORDERED: ACETAMINOPHEN 500MG TABLET PO ONE
== END 2021-01-28 02:04 | disposition home or self-care (01) ==
LOC: ER 18:00
DX: R07.89 Other chest pain (principal); R50.9 Fever, unspecified; F16.10 Hallucinogen abuse, uncomplicated; I10 Essential (primary) hypertension; Z20.822 Contact with and (suspected) exposure to COVID-19
CPT/HCPCS: 87426; 93005; 99284

== ENCOUNTER 2021-01-31 19:50 | Emergency (ER) | payer MEDICARE, OTHER ==
[~2021-01-31] VITALS: Ht 180.3 cm; Wt 80.0 kg
[2021-01-31 21:33] LABS: BASOPHILS % 0.5 % (0.0-2.0); LYMPHOCYTES % 21.6 % (20.0-50.0); MEAN CORPUSCULAR HEMOGLOBIN 33.1 pg (28.0-32.0); MEAN CORPUSCULAR VOLUME 105.1 fL (80.0-94.0); MEAN PLATELET VOLUME 8.3 fl (7.4-10.4); MONOCYTES % 8.8 % (2.0-8.0); NEUTROPHILS % 65.1 % (40.0-76.0); PLATELET 185 x1000/uL (130-400); RED BLOOD CELL COUNT 3.33 mill/uL (4.7-6.1); RED CELL DISTRIBUTION WIDTH 16.3 % (11.6-14.6)
[2021-01-31 21:38] LABS: CHLORIDE 113 mEq/L (98-107)
[2021-01-31 21:41] LABS: ETHANOL BLOOD < 10 mg/dL
[2021-02-01] MEDS ORDERED: IBUP-2028 MT (00:38)
[2021-02-01] MEDS ORDERED: IBUPROFEN 400MG TABLET PO ONE (00:45)
[2021-02-01 01:17] VITALS: BP 116/74
== END 2021-02-01 01:19 | disposition home or self-care (01) ==
LOC: ER 19:50
DX: R07.89 Other chest pain (principal); I10 Essential (primary) hypertension; Z79.899 Other long term (current) drug therapy
CPT/HCPCS: 36415; 71045; 80053; 80320; 84484; 85025; 93005; 99285; G0480

== ENCOUNTER 2021-04-28 00:14 | Emergency (ER) | payer MEDICARE, OTHER ==
[~2021-04-28] VITALS: Ht 182.9 cm; Wt 88.0 kg
[~2021-04-28 00:14] MED LIST changes: +IBUP-2028 MT
[2021-04-28] MEDS ORDERED: IBUPROFEN 600MG TABLET PO STA (02:32)
[2021-04-28 02:37] VITALS: BP 132/84
== END 2021-04-28 04:13 | disposition home or self-care (01) ==
LOC: ER 00:14
DX: R07.89 Other chest pain (principal); R03.0 Elevated blood-pressure reading, without diagnosis of hypertension
CPT/HCPCS: 71045; 93005; 99283

== ENCOUNTER 2021-04-29 21:53 | Emergency (ER) | payer MEDICARE, OTHER ==
[~2021-04-29] VITALS: Ht 182.9 cm; Wt 82.0 kg
[2021-04-29 22:01] VITALS: BP 142/76
[2021-04-29] MEDS ORDERED: IBUPROFEN 600MG TABLET PO ONE (22:45)
== END 2021-04-30 04:48 | disposition left against medical advice (07) ==
LOC: ER 21:53
DX: R07.89 Other chest pain (principal); R94.31 Abnormal electrocardiogram [ECG] [EKG]; I11.0 Hypertensive heart disease with heart failure; I50.9 Heart failure, unspecified
CPT/HCPCS: 93005; 99283; 99291

== ENCOUNTER 2021-05-04 17:54 | Emergency (ER) | payer MEDICARE, OTHER ==
[~2021-05-04] VITALS: Ht 177.8 cm; Wt 90.0 kg
[2021-05-04] MEDS ORDERED: ACETAMINOPHEN 500MG TABLET PO ONE (19:00)
[2021-05-04 20:01] VITALS: BP 140/78
== END 2021-05-04 20:02 | disposition home or self-care (01) ==
LOC: ER 17:54
DX: M79.18 Myalgia, other site (principal); I11.0 Hypertensive heart disease with heart failure; I50.9 Heart failure, unspecified
CPT/HCPCS: 99283

== ENCOUNTER 2021-05-12 14:17 | Emergency (ER) | payer MEDICARE, OTHER ==
[~2021-05-12] VITALS: Ht 177.8 cm; Wt 91.0 kg
[2021-05-12 14:22] VITALS: BP 149/82
[2021-05-12 17:11] LABS: BASOPHILS % 0.4 % (0.0-2.0); EOSINOPHILS % 1.5 % (0.0-5.0); HEMATOCRIT. 42.4 % (42.0-52.0); HEMOGLOBIN. 13.9 g/dL (14.0-18.0); MEAN CORPUSCULAR HEMOGLOBIN 32.1 pg (28.0-32.0); MEAN PLATELET VOLUME 8.8 fl (7.4-10.4); MONOCYTES % 7.1 % (2.0-8.0); PLATELET 224 x1000/uL (130-400); RED BLOOD CELL COUNT 4.32 mill/uL (4.7-6.1)
[2021-05-12 17:19] LABS: CHLORIDE 104 mEq/L (98-107)
== END 2021-05-12 18:38 | disposition home or self-care (01) ==
LOC: ER 14:17
DX: R07.89 Other chest pain (principal); I11.0 Hypertensive heart disease with heart failure; I50.9 Heart failure, unspecified; E11.9 Type 2 diabetes mellitus without complications
CPT/HCPCS: 36415; 71045; 80053; 83880; 84484; 85025; 93005; 99285

== ENCOUNTER 2021-05-13 17:00 | Emergency (ER) | payer MEDICARE, OTHER ==
[~2021-05-13] VITALS: Ht 182.9 cm; Wt 87.0 kg
[2021-05-13] MEDS ORDERED: ASPIRIN 325MG TABLET PO ONE (18:30)
[2021-05-13 20:05] LABS: HEMATOCRIT. 41.8 % (42.0-52.0); HEMOGLOBIN. 13.2 g/dL (14.0-18.0); MEAN CORPUSCULAR HEMOGLOBIN 32.2 pg (28.0-32.0); MEAN CORPUSCULAR VOLUME 101.9 fL (80.0-94.0); MEAN PLATELET VOLUME 8.6 fl (7.4-10.4); PLATELET 194 x1000/uL (130-400); RED CELL DISTRIBUTION WIDTH 16.2 % (11.6-14.6)
[2021-05-13 20:07] LABS: CHLORIDE 107 mEq/L (98-107)
[2021-05-13 20:13] LABS: ETHANOL BLOOD < 10 mg/dL
[2021-05-13 21:22] LABS: PLATELET ESTIMATE NORMAL
[2021-05-14 03:00] VITALS: BP 153/84
== END 2021-05-14 04:28 | disposition short-term general hospital (02) ==
LOC: ER 17:00
DX: R07.89 Other chest pain (principal); N17.9 Acute kidney failure, unspecified; M79.672 Pain in left foot; M79.671 Pain in right foot; J44.9 Chronic obstructive pulmonary disease, unspecified; Z98.890 Other specified postprocedural states
CPT/HCPCS: 36415; 71045; 80053; 80320; 83880; 84484; 85025; 93005; 99285; G0480

== ENCOUNTER 2021-05-15 19:00 | Emergency (ER) | payer MEDICARE, OTHER ==
[~2021-05-15] VITALS: Ht 182.9 cm; Wt 100.0 kg
[2021-05-15 23:44] VITALS: BP 132/65
== END 2021-05-15 23:45 | disposition home or self-care (01) ==
LOC: ER 19:00
DX: R07.89 Other chest pain (principal); I11.0 Hypertensive heart disease with heart failure; I50.9 Heart failure, unspecified; Z79.899 Other long term (current) drug therapy
CPT/HCPCS: 93005; 99283

== ENCOUNTER 2021-05-16 21:48 | Emergency (ER) | payer MEDICARE, OTHER ==
[~2021-05-16] VITALS: Ht 180.3 cm; Wt 86.0 kg
[2021-05-17 00:21] VITALS: BP 125/68
== END 2021-05-17 00:21 | disposition home or self-care (01) ==
LOC: ER 21:48
DX: R07.89 Other chest pain (principal); I11.0 Hypertensive heart disease with heart failure; I50.9 Heart failure, unspecified; Z79.899 Other long term (current) drug therapy
CPT/HCPCS: 93005; 99283